=== PATIENT | female | born 1990 | race Caucasian/White ===

== ENCOUNTER 2017-01-15 11:33 | Emergency (ER) | payer BC ==
[~2017-01-15] VITALS: Ht 177.8 cm; Wt 86.2 kg
--- NOTE | ~2017-01-15 | CT2 ---
[facility] A Service of [facility] RADIOLOGY TEXT RESULTS PATIENT: ROBLES MASON LOCATION: SED : [birth year] UNIT #: [id number] AGE: [address]: Anika Perkins SEX: F ORDER DR: [id number] [place] [id number] MR#: [id number] Acc #: [id number] NAME: ROBLES MASON : 1990 SEX: F STUDY DATE/TIME: 01/15/2017 15:24 UNIT: SED ROOM: STUDY DESCRIPTION: CT Abd and Pelv W Cont Attending Physician: Anika Perkins Pa-C Ordering Physician: Sadi Watson M.D. Primary Care Physician: Michelle Dye M.D. MEDICAL IMAGING REPORT This report is preliminary unless electronic signature is present. EXAM CT abdomen and pelvis with contrast INDICATION Bloody stools and abdominal pain for the past 2 days. PROCEDURE Contrast-enhanced CT of the abdomen and pelvis. This CT examination was performed with one or more of the following radiation dose reduction techniques: automatic exposure control, adjustment of mA and/or kV according to patient size, and iterative reconstruction. COMPARISON 01/19/2015. FINDINGS ABDOMEN WITH CONTRAST: Included lung bases are clear. Liver, spleen, kidneys, adrenal glands, pancreas and gallbladder unremarkable. The bowel loops are nondilated. Appendix is normal. PELVIS WITH CONTRAST: 3.3 cm cyst in the left adnexa. No pelvic fluid. No aggressive appearing bone lesion. IMPRESSION 1. No acute findings in the abdomen or pelvis. 2. 3.3 cm cyst in the left adnexa is most in keeping with a benign functional cyst given the patient's age. On the previous study, there was a 2.9 cm cyst in the left adnexa. It is not clear on this study whether this represents the same or a different cyst. [facility] A Service [facility] RADIOLOGY TEXT RESULTS PATIENT: ROBLES MASON LOCATION: SED : [birth year] UNIT #: [id number] AGE: [address]: Anika Perkins SEX: F ORDER DR: Dictated by... Mitesh Mcclure M.D. THIS IS AN ELECTRONICALLY VERIFIED REPORT Mitesh Mcclure M.D. at 01/17/2017 12:12 PM DANNY/yolanda TD: 01/16/2017 08:24 JOB #: [id number] MEDICAL IMAGING REPORT Page 1 of 1
[2017-01-15] MEDS ORDERED: DEXILANT60 MG (11:54)
[2017-01-15 13:32] LABS: URINE APPEARANCE CLEAR; URINE BILIRUBIN NEG (NEG); URINE COLOR YELLOW; URINE GLUCOSE NEG (NORM); URINE KETONE NEG (NEG); URINE LEUKOCYTE ESTERASE NEG (NEG); URINE NITRATE NEG (NEG); URINE PROTEIN NEG (NEG); URINE SOURCE CLEAN CATCH; URINE UROBILINOGEN 0.2 MG/DL (NORM)
[2017-01-15 13:34] LABS: MICRO INDICATED? NO; URINE BLOOD NEG (NEG)
[2017-01-15 13:47] LABS: BASOPHIL% 0.5 % (0-2.5); DIFF IND NO; EOSINOPHIL# 0.1 X10e3 (0-0.7); EOSINOPHIL% 2.1 % (0.0-7.0); HEMATOCRIT 45.3 % (35.0-45.0); HEMOGLOBIN 14.9 gm/dL (12.0-16.0); LYMPHOCYTE# 2.1 X10e3 (1.0-3.5); LYMPHOCYTE% 33.8 % (17.0-45.0); MEAN CELL VOLUME 97.6 FL (83-96); MEAN CORPUSCULAR HGB CONC 32.8 g/dL (30-36); MEAN PLATELET VOLUME 9.6 FL (6.5-11.5); MONOCYTE# 0.5 X10e3 (0-1.0); MONOCYTE% 7.2 % (3.0-12.0); NEUTROPHIL# 3.5 X10e3 (1.5-7.1); NEUTROPHIL% 56.4 % (40-75); PLATELET COUNT 128 X10e3 (140-420); RED BLOOD COUNT 4.64 X10e (3.90-5.30); RED CELL DISTRIBUTION WIDTH 12.6 % (11.0-15.5); WHITE BLOOD COUNT 6.2 X10e3 (4.0-10.5)
[2017-01-15 14:05] LABS: ALBUMIN SERUM 4.6 g/dL (3.5-5.0); BILIRUBIN, DIRECT 0.1 mg/dL (0.0-0.2); BILIRUBIN,INDIRECT 0.5 mg/dL (0.0-0.9); BILIRUBIN,TOTAL 0.6 mg/dL (0.2-2.0); BUN/CREATININE RATIO 11.42; CALCIUM SERUM 9.5 mg/dL (8.4-10.2); CREATININE SERUM 0.7 mg/dL (0.6-1.4); GLOM FILT RATE Estimated 121.3 mL/min (>60); POTASSIUM 3.2 mmol/L (3.5-5.1); PROTEIN TOTAL SERUM 7.6 g/dL (6.0-8.3)
== END 2017-01-15 16:42 | disposition home or self-care (01) ==
LOC: SED 11:33
PROVIDERS: Physician Assistant
DX: R10.9 Unspecified abdominal pain (principal); R11.2 Nausea with vomiting, unspecified; R19.7 Diarrhea, unspecified; F41.9 Anxiety disorder, unspecified; F17.200 Nicotine dependence, unspecified, uncomplicated; Z88.0 Allergy status to penicillin; Z88.8 Allergy status to other drugs, medicaments and biological substances
CPT/HCPCS: 36415; 74177; 80048; 80076; 81003; 82270; 83690; 84703; 85025; 96361; 96374; 96375; 99284; J2270; J2405; Q9967